=== PATIENT | female | born 1930 | race African-American/Black ===

== ENCOUNTER 2019-02-17 17:30 | Inpatient (IN) | payer MEDICARE, MEDICAID ==
[~2019-02-17 17:30] MED LIST: ISOVUE-370 76%-LOCM 1 ML ONE
[2019-02-17 18:36] LABS: Bilirubin Negative (Negative); Blood, Urine Negative (Negative); Clarity CLOUDY (Clear); Glucose, Urine (Dipstick) Negative (Negative); Leukocyte Trace (Negative); Nitrite Negative (Negative); Protein, Urine (Dipstick) Trace mg/dL (Neg-Trace); pH, Urine 5.5 (5.0-9.0)
[2019-02-17 18:44] LABS: RBC/HPF 0-3 HPF (0-3)
[2019-02-17 18:45] LABS: Bacteria/HPF None Seen HPF (None Seen); Hyaline Casts/LPF NONE SEEN LPF (0-3 Hyaline); Squamous Epithelial 0-3 HPF (0-3); WBC/HPF 0-3 HPF (0-3)
[2019-02-17 18:47] LABS: #Eosinphils 0.3 thou/uL (0.0-0.7); #Lymphocytes 0.9 thou/uL (1.20-3.40); #Monocytes 1.4 thou/uL (0.11-0.59); #Neutrophils 7.8 thou/uL (1.40-6.50); %Basophils 0.4 % (0.0-1.0); %Eosinophils 2.8 % (0.0-10.0); %Lymphocytes 8.8 % (21.0-51.0); %Monocytes 13.3 % (0.0-10.0); %Neutrophils 74.7 % (42.0-75.0); Hemoglobin 15.4 g/dL (12.0-16.0); Mean Corpuscular HGB CONC 32.2 g/dL (32.0-36.0); Mean Corpuscular Hemoglobin 30.7 pg (27.0-31.0); Mean Corpuscular Volume 95.3 fL (78.0-98.0); Mean Platelet Volume 8.1 fL (7.4-10.4); Platelet Count 225 thou/uL (130-400); RBC Distribution Width 13.1 % (11.5-14.5); Red Blood Cell (RBC) Count 5.02 mill/uL (4.20-5.40); White Blood Cell (WBC) Count 10.4 thou/uL (4.8-10.8)
[2019-02-17] MEDS ORDERED: Cefepime 2 GM VIAL ONE (18:51)
[2019-02-17] MEDS ORDERED: Acetaminophen 650 MG Suppository ONE (18:52)
[2019-02-17 19:08] LABS: ALT (SGPT) 34 U/L (8-55); AST (SGOT) 30 U/L (5-34); Albumin 3.7 g/dL (3.4-4.8); Alkaline Phosphatase 93 U/L (40-150); Anion Gap 17 mmol/L (10-20); BUN (Urea Nitrogen) 23 mg/dL (9.8-20.1); Bilirubin, Total 0.3 mg/dL (0.2-1.2); Calc. Creatinine Clearance 0 mL/min (70-130); Calcium 9.6 mg/dL (7.8-10.44); Carbon Dioxide 29 mmol/L (23-31); Chloride 109 mmol/L (98-107); Estimated GFR-MDRD 49; Globulin 4.3 g/dL (2.4-3.5); Glucose 133 mg/dL (83-110); Sodium 151 mmol/L (136-145)
--- NOTE | 2019-02-17 19:46 | RAD ---
PORTABLE CHEST: Date: 02/17/19 HISTORY: Sepsis. COMPARISON: 07/07/18. FINDINGS: No focal infiltrate. Mild cardiomegaly. Prominent aortic calcification. Vascularity is within normal range. IMPRESSION: No acute infiltrate identified. POS: [facility]
--- NOTE | 2019-02-17 21:10 | CT ---
CT ABDOMEN AND PELVIS WITH IV CONTRAST: Date: 02/17/19 Multiple axial tomograms obtained through the abdomen and pelvis with IV enhancement. INDICATION: Fever. UTI. FINDINGS: Images through the lung bases show mild right basilar atelectasis posteriorly. Liver, spleen, and pancreas are unremarkable. Adrenal glands normal. Left renal cystic lesion measures 4.5 cm. No evidence of hydronephrosis or urinary obstruction. Scott catheter is in place and the bladder is contracted. Both kidneys show symmetric enhancement and func tion. Small bowel loops normal caliber. Stool throughout the colon. Appendix appears normal. Aorta is calci fied and ectatic. Uterus unremarkable. No free fluid. IMPRESSION: No acute process identified. POS: [facility]
[2019-02-17 22:38] VITALS: BMI 25.2
[2019-02-18] MEDS ORDERED: Acetaminophen 325 MG TAB PO PRN (02:17)
[2019-02-18] MEDS ORDERED: Ondansetron ODT 4 MG TAB PO PRN (02:17)
[2019-02-18] MEDS ORDERED: Acetaminophen 650 MG Suppository PR PRN (02:17)
[2019-02-18] MEDS ORDERED: Ondansetron PF 4 MG/2 ML Vial IVP PRN (02:17)
[2019-02-18] MEDS: Dextrose 5 %-0.45 % NaCl 1,000 ML IV SCH ×2 (02:50→16:19)
--- NOTE | 2019-02-18 03:19 | HP ---
PRIMARY CARE DOCTOR: Stone Duran MD. CODE STATUS: Full code. TIME OF EVALUATION: 10:30 p.m. CHIEF COMPLAINT: Change in mental status. HISTORY OF PRESENT ILLNESS: This is 88 years old female patient, past medical history of glaucoma, GERD, constipation, hyperlipidemia, Alzheimer's, hypokalemia, frequent falls, came to the hospital after having change in mental status. The patient is nonverbal, so information has been gathered from nursing staff and from records. It was reported that EMS went to the longterm because the patient was lethargic for the past few days. She had been diagnosed with UTI 8 days ago, and had been on Macrobid. Symptoms were severe, likely trigger for underlying infection. No alleviating factors. REVIEW OF SYSTEMS: Unable to obtain. The patient is nonverbal. PAST MEDICAL HISTORY: As mentioned in the HPI. PAST SURGICAL HISTORY: Unable to verify with the patient. The patient is confused and has dementia. PSYCHIATRIC HISTORY: Dementia, psychosis, delusional disorder, and depression. SOCIAL HISTORY: The patient lives in a long-term care facility. FAMILY HISTORY: Unable to verify. KNOWN ALLERGIES: Bactrim DS. REPORTED MEDICATIONS: 1. Macrobid. 2. Bactroban. 3. Milk of magnesia. 4. Maalox. 5. Divalproex. 6. Melatonin. 7. Clotrimazole. 8. K-Dur. 9. Latanoprost. 10. Lasix. 11. Norvasc. 12. Acetaminophen. PHYSICAL EXAMINATION: VITAL SIGNS: On presentation, blood pressure 143/88 with heart rate 103, respiratory rate was 22, temperature 101, pain was 0/10, oxygen saturation was 97% on room air. GENERAL APPEARANCE: The patient is arouse, disoriented, not in acute distress. HEENT: Eyes, normal conjunctivae. Dry oral mucosa. Anicteric. No JVD. RESPIRATORY: Bilateral air entry. No rales. No wheezing. Symmetric expansion. CARDIOVASCULAR: Normal rate, regular rhythm. No murmurs. No gallop. Bilateral leg edema. ABDOMEN: Soft. Normal bowel sounds. MUSCULOSKELETAL: Baseline range of motion and strength. SKIN: Warm, intact. No pallor. No rash. No redness. Peripheral pulses are present. Capillary refill seems to be intact. NEUROLOGIC: Unable to fully explore. The patient is confused. PSYCHIATRIC: Unable to fully explore. The patient is confused. DIAGNOSTIC STUDIES: EKG was reviewed. The patient has sinus tachycardia at the rate of 104, CT 122, QRS 78, QT corrected 431. Chest x-ray was reviewed. The patient has no acute infiltrate identified. The abdomen and pelvis CT was reviewed, the patient has no acute process. LABORATORY DATA: Reviewed. The patient has white count 10.4, hemoglobin 15.4, MCV 95.3, platelet count 225. Chemistry; sodium 151, potassium 4.0, chloride 109, carbon dioxide 29, anion gap 17, BUN 23, creatinine 1.25, previous creatinine was 0.86, GFR 49, glucose 133, lactic acid 3.7, the second one 2.0, calcium 9.6. LFTs were negative. Urine was done, it was negative. ASSESSMENT AND PLAN: The patient will be placed in the hospital with following medical problems: 1. Encephalopathy. It seems that the patient has acute change in mental status when compared with baseline, unclear etiology. It looks like main concern was for sepsis. The patient has been started on antibiotics. Follow cultures. It will need adjustment depending on results impending if we are able to find any source for infection. 2. Hypernatremia, sodium 151. The patient was started on LR. We will change fluids to D5W half NS. This is likely secondary to dehydration. We will monitor BMP to follow sodium. 3. Acute kidney injury. This is an increase from more than 0.3 mg/dL when compared with previous baseline creatinine. This is likely secondary to dehydration. We will hydrate, we will monitor kidney function. We will treat accordingly. 4. Lactic acidosis. Lactic acid was 3.7. Repeat one 2.0. We will treat underlying condition. 5. Hyperglycemia. Glucose 133. This might be secondary to underlying physical distress. No history of diabetes. We will monitor. No need for any acute intervention at this point. 6. Deep venous thrombosis prophylaxis. Job ID: [id number]
[2019-02-18 05:56] LABS: Anion Gap 11 mmol/L (10-20); BUN (Urea Nitrogen) 17 mg/dL (9.8-20.1); Calc. Creatinine Clearance 47 mL/min (70-130); Calcium 8.6 mg/dL (7.8-10.44); Carbon Dioxide 25 mmol/L (23-31); Chloride 114 mmol/L (98-107); Estimated GFR-MDRD 74; Glucose 133 mg/dL (83-110); Potassium 3.6 mmol/L (3.5-5.1); Sodium 146 mmol/L (136-145)
[2019-02-18 06:40] LABS: Hemoglobin 13.3 g/dL (12.0-16.0); Mean Corpuscular HGB CONC 31.5 g/dL (32.0-36.0); Mean Corpuscular Hemoglobin 30.2 pg (27.0-31.0); Mean Corpuscular Volume 95.9 fL (78.0-98.0); Mean Platelet Volume 8.2 fL (7.4-10.4); Platelet Count 162 thou/uL (130-400); RBC Distribution Width 12.8 % (11.5-14.5); Red Blood Cell (RBC) Count 4.41 mill/uL (4.20-5.40)
[2019-02-18 07:03] LABS: Band 3 % (5-11); Eosinophils 4 % (0-10); Lymphocytes 23 % (21-51); MDiff Complete? YES; Monocytes 12 % (0-10); Neutrophil 58 % (42-75)
[2019-02-18] MEDS ORDERED: Prevnar 13-Val Conj/PF 0.5 ML SYRINGE IM ONE (09:00)
[2019-02-18] MEDS: Vancomycin HCl 1 GM in Premix Bag 1 BAG IVPB SCH ×2 (09:32→19:49)
[2019-02-18] MEDS: Cefepime 1 GM in Sodium Chloride 0.9% 100 ML IVPB SCH ×2 (09:32→19:49)
[2019-02-18] MEDS: Enoxaparin Sodium 30 MG/0.3 ML SYRINGE SC SCH (09:33)
[2019-02-18] MEDS ORDERED: Clotrimazole 1 % Cream 30 GM TUBE TOP PRN (14:50)
[2019-02-18] MEDS ORDERED: Milk Of Magnesia 30 ML UDCUP PO PRN (14:50)
[2019-02-18] MEDS ORDERED: guaiFENesin/Dextromethorphan 10 ML UDCUP PO PRN (14:50)
[2019-02-18] MEDS: Divalproex Sodium DR 500 MG TAB PO SCH ×2 (16:19→20:09)
--- NOTE | 2019-02-18 16:59 | PDOC.PN ---
- Subjective Encounter Start Date: 02/18/19 Encounter Start Time: 09:00 Pt seen for followup re: acute metabolic encephalopathy. Answering some questions but not consistently, unable to complete ROS. - Objective Resuscitation Status - Order Detail: 02/18/19 02:17 Resuscitation Status Routine Resuscitation Status: FULL: Full Resuscitation MAR Reviewed: Yes Vital Signs & Weight: Vital Signs (12 hours) Temp Pulse Resp BP Pulse Ox 02/18/19 15:31 98.2 F 71 18 160/70 H 94 L 02/18/19 12:45 98.2 F 55 L 18 159/64 H 95 02/18/19 07:39 98.9 F 53 L 18 93/52 L 94 L 02/18/19 07:35 95 02/18/19 07:20 98.3 F 71 18 147/68 H 95 Weight Weight 147 lb 4 oz Result Diagrams: 02/18/19 05:11 02/18/19 05:11 Additional Labs: Tele: NSR Phys Exam - Physical Examination Constitutional: NAD HEENT: sclera anicteric, oral pharynx no lesions, 2+ tonsils Dry mucosae Neck: no nodes, no JVD, supple, full ROM Respiratory: clear to auscultation bilateral Cardiovascular: RRR, no rub S1, S2 Gastrointestinal: soft, non-tender, no distention, positive bowel sounds Neurological: moves all 4 limbs Psychiatric: normal affect Deviation from normal: Oriented to person only, not to place or time Dx/Plan (1) Acute metabolic encephalopathy Code(s): G93.41 - METABOLIC ENCEPHALOPATHY Status: Acute Comment: Likely secondary to infection (2) UTI (urinary tract infection) Status: Acute Comment: Partially treated UTI. Continue cefepime and vancomycin, follow cultures. (3) Dehydration Code(s): E86.0 - DEHYDRATION Status: Acute Comment: continue IV fluids (4) Hypernatremia Code(s): E87.0 - HYPEROSMOLALITY AND HYPERNATREMIA Status: Acute Comment: sodium improved to 146 today, continue IV fluids and recheck sodium level. - Plan * . Review of Systems - Medications/Allergies Allergies/Adverse Reactions: Allergies Allergy/AdvReac Type Severity Reaction Status Date / Time sulfamethoxazole Allergy Verified 01/29/17 23:00 [From Bactrim] trimethoprim [From Bactrim] Allergy Verified 01/29/17 23:00 Medications: Current Medications Acetaminophen (Tylenol) 650 mg PO Q4H PRN PRN Reason: Headache/Fever/Mild Pain (1-3) Acetaminophen (Tylenol) 650 mg MN Q4H PRN PRN Reason: Headache/Fever/Mild Pain (1-3) Amlodipine Besylate (Norvasc) 5 mg PO DAILY [facility] Clotrimazole (Lotrimin 1% Cream) 0 gm TOP BID PRN PRN Reason: DIRECTED Divalproex Sodium (Depakote) 500 mg PO TID [facility] Last Admin: 02/18/19 16:19 Dose: 500 mg Enoxaparin Sodium (Lovenox) 30 mg SC 0900 [facility] Last Admin: 02/18/19 09:33 Dose: 30 mg Furosemide (Lasix) 20 mg PO DAILY [facility] Guaifenesin/Dextromethorphan (Robitussin Dm) 10 ml PO Q4H PRN PRN Reason: Cough Dextrose/Sodium Chloride (D5 1/2 Ns) 1,000 mls @ 75 mls/hr IV .[id number] [facility] Last Admin: 02/18/19 16:19 Dose: 1,000 mls Vancomycin HCl 1 gm/ Device 200 mls @ 200 mls/hr IVPB Q12H [facility] Last Admin: 02/18/19 09:32 Dose: 200 mls Cefepime HCl 1 gm/ Sodium (Chloride) 100 mls @ 200 mls/hr IVPB Q12HR [facility] Last Admin: 02/18/19 09:32 Dose: 100 mls Latanoprost (Xalatan 0.005% Ophth Soln) 1 drop [facility] Magnesium Hydroxide (Milk Of Magnesium) 30 ml PO Q4H PRN PRN Reason: Indigestion Melatonin (Melatonin) 4.5 mg PO HS [facility] Miscellaneous Medication (Pharmacy To Dose) 1 each IVPB PRN PRN PRN Reason: Pharmacy to dose Ondansetron HCl (Zofran Odt) 4 mg PO Q6H PRN PRN Reason: Nausea/Vomiting Ondansetron HCl (Zofran) 4 mg IVP Q6H PRN PRN Reason: Nausea/Vomiting
[2019-02-18] MEDS ORDERED: hydrALAZINE 20 MG/ML VIAL SLOW IVP PRN (18:15)
[2019-02-18] MEDS: Latanoprost 0.005% Ophth Soln 2.5 ml Bottle EA EYE SCH (20:03)
[2019-02-18] MEDS: Melatonin 3 MG TAB PO SCH (20:04)
[2019-02-19 06:11] LABS: #Basophils 0.1 thou/uL (0.0-0.2); #Eosinphils 0.6 thou/uL (0.0-0.7); #Lymphocytes 1.9 thou/uL (1.20-3.40); #Monocytes 1.1 thou/uL (0.11-0.59); #Neutrophils 5.3 thou/uL (1.40-6.50); %Basophils 0.6 % (0.0-1.0); %Eosinophils 6.9 % (0.0-10.0); %Lymphocytes 20.9 % (21.0-51.0); %Monocytes 12.2 % (0.0-10.0); %Neutrophils 59.4 % (42.0-75.0); Hemoglobin 13.1 g/dL (12.0-16.0); Mean Corpuscular HGB CONC 30.9 g/dL (32.0-36.0); Mean Corpuscular Hemoglobin 29.4 pg (27.0-31.0); Mean Corpuscular Volume 95.1 fL (78.0-98.0); Mean Platelet Volume 8.4 fL (7.4-10.4); Platelet Count 187 thou/uL (130-400); RBC Distribution Width 12.5 % (11.5-14.5); Red Blood Cell (RBC) Count 4.47 mill/uL (4.20-5.40); White Blood Cell (WBC) Count 8.9 thou/uL (4.8-10.8)
[2019-02-19] MEDS: Dextrose 5 %-0.45 % NaCl 1,000 ML IV SCH ×2 (06:21→21:36)
[2019-02-19 06:34] LABS: Anion Gap 9 mmol/L (10-20); BUN (Urea Nitrogen) 9 mg/dL (9.8-20.1); Calc. Creatinine Clearance 56 mL/min (70-130); Calcium 8.4 mg/dL (7.8-10.44); Carbon Dioxide 26 mmol/L (23-31); Chloride 105 mmol/L (98-107); Estimated GFR-MDRD Greater than 90; Glucose 114 mg/dL (83-110); Potassium 3.3 mmol/L (3.5-5.1); Sodium 137 mmol/L (136-145)
[2019-02-19] MEDS: Vancomycin HCl 1 GM in Premix Bag 1 BAG IVPB SCH ×2 (08:14→21:19)
[2019-02-19] MEDS: Cefepime 1 GM in Sodium Chloride 0.9% 100 ML IVPB SCH ×2 (08:21→21:19)
[2019-02-19] MEDS: Amlodipine 5 MG TAB PO SCH (08:22)
[2019-02-19] MEDS: Furosemide 20 MG TAB PO SCH (08:22)
[2019-02-19] MEDS: Enoxaparin Sodium 30 MG/0.3 ML SYRINGE SC SCH (08:22)
[2019-02-19] MEDS: Divalproex Sodium DR 500 MG TAB PO SCH ×3 (08:22→21:22)
--- NOTE | 2019-02-19 18:09 | PDOC.PN ---
- Subjective Encounter Start Date: 02/19/19 Encounter Start Time: 09:20 Pt seen for followup re: acute metabolic encephalopathy. Pt is not answering questions, could not complete ROS. - Objective Resuscitation Status - Order Detail: 02/18/19 02:17 Resuscitation Status Routine Resuscitation Status: FULL: Full Resuscitation MAR Reviewed: Yes Vital Signs & Weight: Vital Signs (12 hours) Temp Pulse Resp BP Pulse Ox 02/19/19 16:16 98.6 F 61 18 126/71 96 02/19/19 12:10 97.8 F 78 18 149/71 H 94 L 02/19/19 08:22 63 02/19/19 07:10 98.6 F 68 18 141/60 H 94 L Weight Weight 147 lb 4 oz I&O: 02/18/19 02/19/19 02/20/19 06:59 06:59 06:59 Intake Total 2355 Output Total 2019 Balance 335 Result Diagrams: 02/19/19 05:24 02/19/19 05:24 EKG Reviewed by me: Yes (Tele: NSR) Phys Exam - Physical Examination Constitutional: NAD HEENT: moist MMs Neck: supple Respiratory: clear to auscultation bilateral Cardiovascular: RRR Gastrointestinal: soft Neurological: moves all 4 limbs Psychiatric: normal affect Deviation from normal: Unable to assess orientation Dx/Plan (1) Acute metabolic encephalopathy Code(s): G93.41 - METABOLIC ENCEPHALOPATHY Status: Acute Comment: Likely secondary to infection, improving (2) UTI (urinary tract infection) Status: Acute Comment: Continue cefepime and vancomycin, follow urine cultures. (3) Hypokalemia Code(s): E87.6 - HYPOKALEMIA Status: Acute Comment: replace potassium (4) Dehydration Code(s): E86.0 - DEHYDRATION Status: Resolved (5) Hypernatremia Code(s): E87.0 - HYPEROSMOLALITY AND HYPERNATREMIA Status: Resolved - Plan * . Review of Systems - Medications/Allergies Allergies/Adverse Reactions: Allergies Allergy/AdvReac Type Severity Reaction Status Date / Time sulfamethoxazole Allergy Verified 01/29/17 23:00 [From Bactrim] trimethoprim [From Bactrim] Allergy Verified 01/29/17 23:00 Medications: Current Medications Acetaminophen (Tylenol) 650 mg PO Q4H PRN PRN Reason: Headache/Fever/Mild Pain (1-3) Acetaminophen (Tylenol) 650 mg IA Q4H PRN PRN Reason: Headache/Fever/Mild Pain (1-3) Amlodipine Besylate (Norvasc) 5 mg PO DAILY [facility] Last Admin: 02/19/19 08:22 Dose: 5 mg Clotrimazole (Lotrimin 1% Cream) 0 gm TOP BID PRN PRN Reason: DIRECTED Divalproex Sodium (Depakote) 500 mg PO TID [facility] Last Admin: 02/19/19 16:15 Dose: 500 mg Enoxaparin Sodium (Lovenox) 30 mg SC 0900 [facility] Last Admin: 02/19/19 08:22 Dose: 30 mg Furosemide (Lasix) 20 mg PO DAILY [facility] Last Admin: 02/19/19 08:22 Dose: 20 mg Guaifenesin/Dextromethorphan (Robitussin Dm) 10 ml PO Q4H PRN PRN Reason: Cough Hydralazine HCl (Apresoline) 10 mg SLOW IVP Q6H PRN PRN Reason: SBP Greater Than 170 Dextrose/Sodium Chloride (D5 1/2 Ns) 1,000 mls @ 75 mls/hr IV .[id number] [facility] Last Admin: 02/19/19 06:21 Dose: 1,000 mls Vancomycin HCl 1 gm/ Device 200 mls @ 200 mls/hr IVPB Q12H [facility] Last Admin: 02/19/19 08:14 Dose: 200 mls Cefepime HCl 1 gm/ Sodium (Chloride) 100 mls @ 200 mls/hr IVPB Q12HR [facility] Last Admin: 02/19/19 08:21 Dose: 100 mls Latanoprost (Xalatan 0.005% Ophth Soln) 1 drop [facility] Last Admin: 02/18/19 20:03 Dose: 1 drop Magnesium Hydroxide (Milk Of Magnesium) 30 ml PO Q4H PRN PRN Reason: Indigestion Melatonin (Melatonin) 4.5 mg PO [facility] Last Admin: 02/18/19 20:04 Dose: 4.5 mg Miscellaneous Medication (Pharmacy To Dose) 1 each IVPB PRN PRN PRN Reason: Pharmacy to dose Ondansetron HCl (Zofran Odt) 4 mg PO Q6H PRN PRN Reason: Nausea/Vomiting Ondansetron HCl (Zofran) 4 mg IVP Q6H PRN PRN Reason: Nausea/Vomiting
[2019-02-19] MEDS ORDERED: Potassium Chloride 20 MEQ TAB PO SCH (18:15)
[2019-02-19] MEDS: Latanoprost 0.005% Ophth Soln 2.5 ml Bottle EA EYE SCH (21:20)
[2019-02-19] MEDS: Melatonin 3 MG TAB PO SCH (21:22)
[2019-02-20] MEDS ORDERED: diphenhydrAMINE 50 MG/ML VIAL IVP SCH (00:45)
[2019-02-20 06:07] LABS: #Basophils 0.1 thou/uL (0.0-0.2); #Eosinphils 0.5 thou/uL (0.0-0.7); #Lymphocytes 1.7 thou/uL (1.20-3.40); #Monocytes 0.8 thou/uL (0.11-0.59); %Basophils 0.8 % (0.0-1.0); %Eosinophils 6.9 % (0.0-10.0); %Lymphocytes 24.3 % (21.0-51.0); %Monocytes 11.5 % (0.0-10.0); %Neutrophils 56.5 % (42.0-75.0); Hemoglobin 13.1 g/dL (12.0-16.0); Mean Corpuscular HGB CONC 32.8 g/dL (32.0-36.0); Mean Corpuscular Hemoglobin 30.6 pg (27.0-31.0); Mean Corpuscular Volume 93.4 fL (78.0-98.0); Mean Platelet Volume 8.2 fL (7.4-10.4); Platelet Count 181 thou/uL (130-400); RBC Distribution Width 12.3 % (11.5-14.5); Red Blood Cell (RBC) Count 4.29 mill/uL (4.20-5.40); White Blood Cell (WBC) Count 7.2 thou/uL (4.8-10.8)
[2019-02-20 06:27] LABS: Anion Gap 10 mmol/L (10-20); BUN (Urea Nitrogen) 7 mg/dL (9.8-20.1); Calc. Creatinine Clearance 56 mL/min (70-130); Calcium 8.3 mg/dL (7.8-10.44); Carbon Dioxide 25 mmol/L (23-31); Chloride 106 mmol/L (98-107); Estimated GFR-MDRD Greater than 90; Glucose 116 mg/dL (83-110); Potassium 3.2 mmol/L (3.5-5.1); Sodium 138 mmol/L (136-145)
[2019-02-20] MEDS: Amlodipine 5 MG TAB PO SCH (08:40)
[2019-02-20] MEDS: Divalproex Sodium DR 500 MG TAB PO SCH (08:40)
[2019-02-20] MEDS: Furosemide 20 MG TAB PO SCH (08:40)
[2019-02-20] MEDS: Enoxaparin Sodium 30 MG/0.3 ML SYRINGE SC SCH (08:41)
[2019-02-20] MEDS: Cefepime 1 GM in Sodium Chloride 0.9% 100 ML IVPB SCH (08:44)
[2019-02-20] MEDS: Vancomycin HCl 1 GM in Premix Bag 1 BAG IVPB SCH (08:44)
--- NOTE | 2019-02-20 10:18 | PQF ---
ADDRESSED THIS ISSUE IN DISCHARGE SUMMARY CLINICAL DOCUMENTATION IMPROVEMENT CLARIFICATION FORM: ICD-10 Updated PLEASE DO AN ADDENDUM TO THE PROGRESS NOTE WITH ANY DOCUMENTATION UPDATES OR ADDITIONS AND CARRY THROUGH TO DC SUMMARY. THANK YOU. DATE: 02/20/2019 ATTN: Dr. Appiah Please exercise your independent, professional judgment in responding to the clarification form. Clinical indicators are provided on the bottom of this form for your review Please check appropriate box(s) to clarify if the following diagnosis has been ruled in or ruled out: SEPSIS [ ] Ruled in diagnosis [ ] Continue to treat [ ] Resolved [ ] Ruled out diagnosis [ ] Cannot rule out diagnosis [ ] Other diagnosis [ ] Unable to determine In addition, please specify: Present on Admission (POA): [ ] Yes [ ] No [ ] Unable to determine For continuity of documentation, please document condition throughout progress notes and discharge summary. Thank You. CLINICAL INDICATORS - SIGNS / SYMPTOMS / LABS ER RECORD 02/17: BP 143/88, Pulse 103, Resp. 22 Temp. 101 DX: Sepsis H&P 02/17: Lactic acid 3.7 Glucose 133 No history of diabetes Encephalopathy. It looks like main concern was for sepsis. BETY PN 02/18: Acute metabolic encephalopathy. Likely secondary to infection Partially treated UTI RISKS: H&P: 88 yo lives in a long-term care facility. Diagnosed with UTI 8 days ago. Hx Alzheimer's. TREATMENT: PN 02/19: Continue cefepime and vancomycin, follow urine cultures. Thank you, Joie (This form is maintained as a part of the permanent medical record) 2015 [employer]. All Rights Reserved Joie Basurto RN, BSN [email or web address] Office: [phone] [facility]
[2019-02-20] MEDS ORDERED: Nitrofurantoin Monohyd/M-Cryst 100 MG CAP PO SCH ×2 (10:45→21:00)
[2019-02-20] MEDS: Potassium Chloride 20 MEQ TAB PO SCH ×2 (11:21→15:37)
[2019-02-20] MEDS: Dextrose 5 %-0.45 % NaCl 1,000 ML IV SCH (11:21)
[2019-02-20 12:12] VITALS: BP 168/89; TEMP 97.3
--- NOTE | 2019-02-21 04:58 | DIS ---
DATE OF ADMISSION: 02/17/2019 DATE OF DISCHARGE: 02/20/2019 PRIMARY CARE PROVIDER: Stone Duran MD DISCHARGE DIAGNOSES: 1. Sepsis. 2. Sepsis, most likely secondary to partially treated urinary tract infection. 3. Acute metabolic encephalopathy. 4. Acute kidney injury. 5. Dehydration. CONDITION OF PATIENT ON THE DAY OF DISCHARGE: Stable. I assessed, Ms. Whitney on the day of discharge. She denies any chest pain or shortness of breath. Vital signs are stable. S1 and S2 are heard, regular. Lungs are clear to auscultation bilaterally. DISCHARGE MEDICATIONS: No change was made to her pre-admission home medications as dictated by Dr. Garza on his history and physical note dated February 18, 2019. HOSPITAL COURSE: Ms. Whitney is a pleasant 88-year-old lady who was admitted to [facility] for acute metabolic encephalopathy and sepsis on February 17, 2019. Please refer to Dr. Garza's history and physical note dated February 18, 2019, for further details. She was treated with broad-spectrum intravenous antibiotics. Suspected source of infection was partially treated urinary tract infection. Final urine cultures did not show any growth. Preliminary blood cultures did not show any growth at 48 hours. Based on her previous urine culture result, she is being discharged back to her [facility] on Macrobid 100 mg 2 times a day. She has been advised to follow up with her primary care provider for final blood culture results. She did not have any leukocytosis during this hospitalization. On the day of discharge, she has white count 7200, hemoglobin 13.1, platelet count 181,000. Sodium 138, potassium 3.2 which is being replaced, and creatinine 0.71. The patient was also dehydrated and had acute kidney injury at the time of admission. These resolved by the day of discharge. Many thanks for allowing me to participate in your patient's care. Please feel free to contact me with any questions or concerns. DISCHARGE DESTINATION: [facility], from where the patient was admitted to the hospital. Total amount of time spent coordinating this discharge: 32 minutes. Job ID: [id number]
== END 2019-02-20 14:50 | disposition swing bed (61) | DRG 871 ==
LOC: ERS 17:30 → 2NO 21:22
PROVIDERS: ADMIT Hospitalist; ATTEND Hospitalist
DX: A41.9 Sepsis, unspecified organism (principal); G93.41 Metabolic encephalopathy; N39.0 Urinary tract infection, site not specified; E87.0 Hyperosmolality and hypernatremia; N17.9 Acute kidney failure, unspecified; K21.9 Gastro-esophageal reflux disease without esophagitis; H40.9 Unspecified glaucoma; K59.00 Constipation, unspecified; E78.5 Hyperlipidemia, unspecified; G30.9 Alzheimer's disease, unspecified; F02.80 Dementia in other diseases classified elsewhere, unspecified severity, without behavioral disturbance, psychotic disturbance, mood disturbance, and anxiety; R29.6 Repeated falls; F32.9 Major depressive disorder, single episode, unspecified; E86.0 Dehydration; R73.9 Hyperglycemia, unspecified; E87.6 Hypokalemia; Z88.1 Allergy status to other antibiotic agents
CPT/HCPCS: 36415; 51702; 71045; 74177; 80048; 80053; 81003; 81015; 83605; 85025; 87040; 87086; 87804; 90471; 90670; 93005; 96361; 96365; 96367; G0009; J0692; J1200; J1650; J3370; J3490; Q9966

== ENCOUNTER 2019-02-23 00:48 | Inpatient (IN) | payer MEDICARE, MEDICAID ==
[2019-02-23] MEDS ORDERED: cefTRIAXone\\ROCEPHIN 2 GM VIAL ONE (01:09)
[2019-02-23 01:52] LABS: #Eosinphils 0.1 thou/uL (0.0-0.7); #Lymphocytes 1.2 thou/uL (1.20-3.40); #Monocytes 1.7 thou/uL (0.11-0.59); #Neutrophils 10.5 thou/uL (1.40-6.50); %Basophils 0.2 % (0.0-1.0); %Eosinophils 0.8 % (0.0-10.0); %Lymphocytes 8.9 % (21.0-51.0); %Monocytes 12.4 % (0.0-10.0); %Neutrophils 77.6 % (42.0-75.0); Hemoglobin 14.5 g/dL (12.0-16.0); Mean Corpuscular HGB CONC 32.8 g/dL (32.0-36.0); Mean Corpuscular Volume 94.4 fL (78.0-98.0); Mean Platelet Volume 8.4 fL (7.4-10.4); Platelet Count 267 thou/uL (130-400); RBC Distribution Width 13.1 % (11.5-14.5); Red Blood Cell (RBC) Count 4.68 mill/uL (4.20-5.40); White Blood Cell (WBC) Count 13.5 thou/uL (4.8-10.8)
[2019-02-23 02:11] LABS: Bilirubin Small (Negative); Blood, Urine Moderate (Negative); Clarity TURBID (Clear); Glucose, Urine (Dipstick) Negative (Negative); Leukocyte Trace (Negative); Nitrite Negative (Negative); Protein, Urine (Dipstick) 30 mg/dL (Neg-Trace); Urobilinogen 0.2 mg/dL (0.2-1.0)
[2019-02-23 02:14] LABS: Bacteria/HPF None Seen HPF (None Seen); RBC/HPF 0-3 HPF (0-3)
[2019-02-23 02:14] LABS: ALT (SGPT) 68 U/L (8-55); AST (SGOT) 65 U/L (5-34); Albumin 2.8 g/dL (3.4-4.8); Alkaline Phosphatase 76 U/L (40-150); Anion Gap 17 mmol/L (10-20); BUN (Urea Nitrogen) 55 mg/dL (9.8-20.1); Bilirubin, Total 0.4 mg/dL (0.2-1.2); Calc. Creatinine Clearance 0 mL/min (70-130); Calcium 8.9 mg/dL (7.8-10.44); Carbon Dioxide 22 mmol/L (23-31); Chloride 110 mmol/L (98-107); Estimated GFR-MDRD 16; Globulin 4.1 g/dL (2.4-3.5); Glucose 125 mg/dL (83-110); Potassium 5.9 mmol/L (3.5-5.1); Protein, Total 6.9 g/dL (6.0-8.3); Sodium 143 mmol/L (136-145)
[2019-02-23 02:17] LABS: Hyaline Casts/LPF 0-3 HYALINE CAST LPF (0-3 Hyaline); Other Casts/LPF None Seen LPF (0-3 Hyaline); Oval Fat Bodies/HPF None Seen HPF (None Seen); Pathc Cast-AUWi Flag 9.38 (0-2.49); Sperm/HPF None Seen HPF (None Seen); Transitional Epithelial NONE SEEN HPF (0-3); Trichomonas/HPF None Seen HPF (None Seen); Yeast-All Forms None Seen HPF (None Seen)
[2019-02-23] MEDS ORDERED: Acetaminophen 325 MG TAB PO PRN (04:43)
[2019-02-23] MEDS ORDERED: hydrALAZINE 20 MG/ML VIAL SLOW IVP PRN (04:43)
[2019-02-23 05:14] LABS: Potassium 5.8 mmol/L (3.5-5.1)
--- NOTE | 2019-02-23 05:26 | HP ---
PRIMARY CARE PHYSICIAN: Stone Duran MD. CHIEF COMPLAINT: Altered mental status. HISTORY OF PRESENT ILLNESS: Ms. Whitney is a pleasant 88-year-old female who has a history of dementia as well as gastroesophageal reflux disease and hypertension. She was actually recently discharged from our hospital about 4 days ago. At that time, she was treated for urinary tract infection and acute renal failure. She was treated and then released back to the retirement. Apparently while in the retirement, she was found to be very lethargic and nonverbal. Usually she is somewhat ambulatory and able to talk, albeit she has baseline confusion. For this reason, they brought her to the emergency room where she was found to have acute renal failure once again with a creatinine this time up to 3.32. She was also hyperkalemic and has urine which is suggestive of a possible early urinary tract infection with positive leukocyte esterase. The patient is currently sleeping and she does not wake up for me other than opening her eyes. She appears comfortable, but I am unable to get any additional history. REVIEW OF SYSTEMS: This is unobtainable due to the patient's dementia as well as her decreased mentation. PAST MEDICAL HISTORY: Significant for hypertension, recurrent urinary tract infections, glaucoma, gastroesophageal reflux disease, constipation, hyperlipidemia, Alzheimer's dementia, and hypokalemia. PAST SURGICAL HISTORY: Unknown. ALLERGIES: TO BACTRIM. SOCIAL HISTORY: She resides at [facility]. She is a full code. I am unable to get history with regard to smoking or alcohol use. FAMILY HISTORY: Also unknown. MEDICATIONS: Medications are taken from the retirement records. These include; 1. Lasix 20 mg daily. 2. Latanoprost 0.005%. 3. Melatonin 5 mg daily. 4. Norvasc 5 mg p.o. daily. 5. Potassium chloride 10 mEq daily. 6. Macrobid 100 mg twice a day. 7. is on hold. 8. Maalox p.r.n. 9. Tylenol p.r.n. 10. Clotrimazole cream. 11. Robitussin as needed. PHYSICAL EXAMINATION: GENERAL: She is drowsy and nonverbal. She is well developed, well nourished, and well kept in appearance. VITAL SIGNS: Her blood pressure initially was 81/42 and then repeat was 135/57, heart rate 94, respiratory rate of 20, and temperature was 99.5 rectally. HEENT: Her pupils are equal and reactive. She has arcus senilis. Throat, there is no erythema, no exudates. NECK: No adenopathy. No bruits. LUNGS: Clear to auscultation. There is no wheezing, no rales, no rhonchi. CARDIOVASCULAR: She had a normal S1 and S2. There was no S3 or S4. No murmurs, clicks, or rubs. ABDOMEN: Obese. It is soft. It is nontender. Nondistended. Positive for bowel sounds. No rebound. No guarding. No organomegaly. SKIN AND INTEGUMENT: There are no significant skin changes. No rash. LABORATORY RESULTS: The urinalysis shows moderate blood, trace leukocyte esterase. Sodium was 143, potassium 5.9, chloride is 110, CO2 is 22, BUN of 55, creatinine 3.32, glucose is 125. Lactic acid was 2.8. White blood cell count is 13.5, hemoglobin is 14.5, hematocrit is 44.1, and platelet count is 267. Lactic acid was 2.8. IMAGING STUDIES: She had a chest x-ray, which was essentially negative for any obvious cardiopulmonary disease. This is by my reading. ASSESSMENT: This is a pleasant 88-year-old female who was just recently discharged from our hospital, who presents with lethargy and altered mental status, likely as a result of acute renal failure. She had some white cells in the urine, but it does not appear to be in overt urinary tract infection. 1. For acute renal failure, I suspect this is likely from volume depletion and poor oral intake. She will be started on IV hydration and we will trend her renal function. If this does not improve, then we will need to get renal ultrasound and possibly Nephrology consult. 2. Pyuria. This appears to be quite mild. Urine culture has been done. We will treat her empirically with Rocephin and this is based on prior cultures on February 07 in which she had Escherichia coli which was sensitive to ceftriaxone. However, I doubt overt infection in her case. 3. Hypertension. Her blood pressure seems to have recovered. Likely, we can restart amlodipine in the a.m. plus p.r.n. medications. 4. Alzheimer disease. This appears to be fairly advanced and this could be leading to her recurrent acute renal failure and dehydration. She likely has inadequate oral intake and this may be a natural progression of her disease. 5. She will be placed on deep venous thrombosis and gastrointestinal prophylaxis. Job ID: [id number]
[2019-02-23] MEDS: Sodium Chloride 0.9% 1,000 ML IV SCH ×2 (06:06→16:49)
[2019-02-23 06:36] LABS: Lactic Acid 3.1 mmol/L (0.5-2.2)
--- NOTE | 2019-02-23 08:06 | RAD ---
CHEST 1 VIEW: INDICATION: History of sepsis and UTI. COMPARISON: Prior exam dated 02/17/2019. FINDINGS: Chronic lung changes and mild cardiomegaly are stable. No confluent airspace opacity, pleural effusi on, or pneumothorax is evident. The patient's head overlies the right lung apex. The patient is rot ated. IMPRESSION: No acute abnormality. POS: [facility]
[2019-02-23] MEDS: Heparin 5,000 UNITS/ML VIAL SC SCH ×2 (08:54→21:20)
--- NOTE | 2019-02-23 14:08 | PDOC.PN ---
- Subjective Encounter Start Date: 02/23/19 Encounter Start Time: 09:45 Subjective: very lethargic, is unable to clear resp secretions -: awakens to sternal rub but falls asleep immediatly -: is not communicative at present - Objective Resuscitation Status - Order Detail: 02/23/19 03:19 Resuscitation Status Routine Resuscitation Status: DNAR: NO Resuscitation Discussed with: d/w son Mr.Johnson Santo and ANAHY MURPHY Reviewed: Yes Vital Signs & Weight: Vital Signs (12 hours) Temp Pulse Resp BP Pulse Ox 02/23/19 11:39 97.9 F 50 L 16 102/53 L 98 02/23/19 08:54 95 02/23/19 07:37 97.9 F 63 14 130/87 96 02/23/19 05:10 97.6 F 63 18 130/72 95 02/23/19 04:50 95 Weight Admit Weight 142 lb 3.17 oz Weight 142 lb 3.17 oz Result Diagrams: 02/23/19 01:36 02/23/19 01:37 Phys Exam - Physical Examination HEENT: PERRLA, sclera anicteric Neck: no JVD, supple Respiratory: no wheezing rhonchi++ Cardiovascular: RRR, no significant murmur Gastrointestinal: soft, non-tender, positive bowel sounds Musculoskeletal: no edema, pulses present Neurological: non-focal, moves all 4 limbs Dx/Plan (1) UTI (urinary tract infection) Status: Acute Qualifiers: Urinary tract infection type: acute cystitis Hematuria presence: without hematuria Qualified Code(s): N30.00 - Acute cystitis without hematuria (2) BETY (acute kidney injury) Code(s): N17.9 - ACUTE KIDNEY FAILURE, UNSPECIFIED Status: Acute (3) Metabolic acidosis Code(s): E87.2 - ACIDOSIS Status: Acute (4) Hyperkalemia Code(s): E87.5 - HYPERKALEMIA Status: Acute (5) Elevated LFTs Code(s): R94.5 - ABNORMAL RESULTS OF LIVER FUNCTION STUDIES Status: Acute (6) Acute metabolic encephalopathy Code(s): G93.41 - METABOLIC ENCEPHALOPATHY Status: Acute (7) Protein-calorie malnutrition, moderate Code(s): E44.0 - MODERATE PROTEIN-CALORIE MALNUTRITION Status: Chronic (8) Dementia Code(s): F03.90 - UNSPECIFIED DEMENTIA WITHOUT BEHAVIORAL DISTURBANCE Status: Chronic Qualifiers: Dementia type: unspecified type Dementia behavioral disturbance: with behavioral disturbance Qualified Code(s): F03.91 - Unspecified dementia with behavioral disturbance - Plan prognosis guarded, d/w son Mr.Johnson Santo, wants her to be DNAR -: is on ceftriaxone, iv hydration, watch for overload -: freq resp toileting, asp precautions, nebs prn -: echo, d/w for neph consultation -: await culture results * . Review of Systems - Medications/Allergies Allergies/Adverse Reactions: Allergies Allergy/AdvReac Type Severity Reaction Status Date / Time sulfamethoxazole Allergy Verified 02/23/19 07:55 [From Bactrim] trimethoprim [From Bactrim] Allergy Verified 02/23/19 07:55 Medications: Current Medications Acetaminophen (Tylenol) 650 mg PO Q4H PRN PRN Reason: Headache/Fever/Mild Pain (1-3) Heparin Sodium (Porcine) (Heparin) 5,000 units SC BID ERIC Last Admin: 02/23/19 08:54 Dose: 5,000 units Hydralazine HCl (Apresoline) 10 mg SLOW IVP Q4H PRN PRN Reason: SBP > 180 and HR < 70 Ceftriaxone Sodium 1 gm/ (Sodium Chloride) 100 mls @ 200 mls/hr IVPB Q24HR ERIC Sodium Chloride (Normal Saline 0.9%) 1,000 mls @ 100 mls/hr IV .Q10H ERIC Last Admin: 02/23/19 06:06 Dose: 1,000 mls Non-Formulary Medication (Latanoprost/Pf [Latanoprost 0.005% Eye Drop]) 1 drop EA EYE HS ERIC Non-Formulary Medication (Melatonin [Melatonin]) 5 mg PO HS ERIC
[2019-02-23] MEDS: Albuterol Sulfate 1.25 MG/3 ML NEB NEB SCH ×2 (15:34→23:22)
[2019-02-23 15:56] LABS: Anion Gap 14 mmol/L (10-20); BUN (Urea Nitrogen) 52 mg/dL (9.8-20.1); Calc. Creatinine Clearance 21 mL/min (70-130); Calcium 8.6 mg/dL (7.8-10.44); Carbon Dioxide 23 mmol/L (23-31); Chloride 117 mmol/L (98-107); Estimated GFR-MDRD 30; Glucose 102 mg/dL (83-110); Potassium 3.8 mmol/L (3.5-5.1); Sodium 150 mmol/L (136-145)
[2019-02-23] MEDS ORDERED: Non-Formulary Item 1 EACH (Melatonin [Melatonin] 5 MG) PO SCH (21:00)
[2019-02-23] MEDS ORDERED: Non-Formulary Item 1 EACH (Latanoprost/Pf [Latanoprost 0.005% Eye Drop] 1 DROP) EA EYE SCH (21:00)
[2019-02-23] MEDS: Melatonin 3 MG TAB PO SCH (21:17)
[2019-02-23] MEDS: Latanoprost 0.005% Ophth Soln 2.5 ml Bottle EA EYE SCH (21:20)
--- NOTE | 2019-02-23 21:31 | CON ---
DATE OF CONSULTATION: REASON FOR CONSULTATION: Hyperkalemia. HISTORY OF PRESENT ILLNESS: A very pleasant 88-year-old female with a baseline creatinine of less than 1, who presented to the hospital with altered mental status. The patient had vomiting and some diarrhea and was noted to have a creatinine of 3 and a potassium of 5.9, so I was consulted. The patient denies no headache, numbness, tingling, or weakness. The patient can give no further history. PAST MEDICAL HISTORY: Significant for hypertension, CKD, anemia, longterm patient, dementia, constipation. PAST SURGICAL HISTORY: Unknown. HOME MEDICATION: List reviewed. HOSPITAL MEDICATION: List reviewed. REVIEW OF SYSTEMS: Unobtainable. PHYSICAL EXAMINATION: GENERAL: On examination, the patient is resting, VITAL SIGNS: Afebrile, pulse 75, breathing 16, blood pressure 102/50. See above. Awake, alert, in no acute distress. GENERAL APPEARANCE AND MENTAL STATUS: Fair. HEAD/NECK: Normocephalic. Atraumatic. EYES: EOMI. No deformity. EARS: Clear. No ulcers. NOSE: Intact. No lesions. MOUTH: Clear. No discharge. THROAT: Clear. No exudate. LUNGS: Clear. No crackles. CARDIAC: S1, S2. No rub. ABDOMEN: Benign. Bowel sounds positive. GENITALIA/RECTUM: Scott absent. BACK/EXTREMITIES: Edema 0+. NEUROLOGICAL: The patient is resting. SKIN: LYMPHATICS: ASSESSMENT AND RECOMMENDATIONS: 1. Acute kidney injury with chronic kidney disease, most likely due to decreased effective arterial blood volume. Continue hydration. 2. Hyperkalemia. Discussed risks versus benefits of dialysis. Family declined. 3. Anemia, stable. Medication based on GFR appropriate. Overall prognosis is poor. I would recommend palliative consult. Continue hydration with normal saline as a comfort measure. Job ID: [id number]
[2019-02-24] MEDS: cefTRIAXone\\ROCEPHIN 1 GM in Sodium Chloride 0.9% 100 ML IVPB SCH (01:40)
[2019-02-24] MEDS: Sodium Chloride 0.9% 1,000 ML IV SCH (01:41)
[2019-02-24] MEDS: Albuterol Sulfate 1.25 MG/3 ML NEB NEB SCH ×3 (07:17→22:20)
[2019-02-24 08:39] LABS: #Basophils 0.1 thou/uL (0.0-0.2); #Eosinphils 0.6 thou/uL (0.0-0.7); #Lymphocytes 1.8 thou/uL (1.20-3.40); %Basophils 0.8 % (0.0-1.0); %Eosinophils 6.7 % (0.0-10.0); %Lymphocytes 21.5 % (21.0-51.0); %Monocytes 12.1 % (0.0-10.0); %Neutrophils 58.9 % (42.0-75.0); Hemoglobin 13.9 g/dL (12.0-16.0); Mean Corpuscular HGB CONC 32.9 g/dL (32.0-36.0); Mean Corpuscular Volume 94.1 fL (78.0-98.0); Mean Platelet Volume 8.7 fL (7.4-10.4); Platelet Count 243 thou/uL (130-400); Red Blood Cell (RBC) Count 4.48 mill/uL (4.20-5.40); White Blood Cell (WBC) Count 8.4 thou/uL (4.8-10.8)
[2019-02-24 09:02] LABS: Anion Gap 14 mmol/L (10-20); BUN (Urea Nitrogen) 44 mg/dL (9.8-20.1); Calc. Creatinine Clearance 31 mL/min (70-130); Calcium 8.9 mg/dL (7.8-10.44); Carbon Dioxide 23 mmol/L (23-31); Chloride 120 mmol/L (98-107); Estimated GFR-MDRD 47; Glucose 79 mg/dL (83-110); Potassium 3.8 mmol/L (3.5-5.1); Sodium 153 mmol/L (136-145)
[2019-02-24] MEDS: Dextrose 5% in Water 1,000 ML IV SCH (10:09)
[2019-02-24] MEDS: Heparin 5,000 UNITS/ML VIAL SC SCH ×2 (10:09→20:47)
--- NOTE | 2019-02-24 11:52 | PDOC.PN ---
- Subjective Encounter Start Date: 02/24/19 Encounter Start Time: 10:45 Subjective: more awake and smiling with few words this am -: son at bedside -: not oriented, not in distress or sob - Objective Resuscitation Status - Order Detail: 02/23/19 03:19 Resuscitation Status Routine Resuscitation Status: DNAR: NO Resuscitation Discussed with: d/w son Mr.Johnson Santo and ANAHY MURPHY Reviewed: Yes Vital Signs & Weight: Vital Signs (12 hours) Temp Pulse Resp BP Pulse Ox 02/24/19 07:45 98.2 F 61 18 136/56 L 96 02/24/19 07:17 85 16 98 02/24/19 03:26 98.6 F 61 18 115/56 L 98 02/24/19 00:00 98.2 F 62 18 97 Weight Admit Weight 142 lb 3.17 oz Weight 142 lb 3.17 oz I&O: 02/23/19 02/24/19 02/25/19 06:59 06:59 06:59 Intake Total 2300 Output Total 1150 Balance 1150 Result Diagrams: 02/24/19 07:58 02/24/19 07:58 Phys Exam - Physical Examination HEENT: PERRLA, sclera anicteric Neck: no JVD, supple Respiratory: no wheezing, no rales Cardiovascular: RRR, no significant murmur Gastrointestinal: soft, no distention, positive bowel sounds Musculoskeletal: no edema, pulses present Neurological: non-focal, moves all 4 limbs Dx/Plan (1) UTI (urinary tract infection) Status: Acute Qualifiers: Urinary tract infection type: acute cystitis Hematuria presence: without hematuria Qualified Code(s): N30.00 - Acute cystitis without hematuria (2) BETY (acute kidney injury) Code(s): N17.9 - ACUTE KIDNEY FAILURE, UNSPECIFIED Status: Acute (3) Metabolic acidosis Code(s): E87.2 - ACIDOSIS Status: Acute (4) Hyperkalemia Code(s): E87.5 - HYPERKALEMIA Status: Resolved (5) Elevated LFTs Code(s): R94.5 - ABNORMAL RESULTS OF LIVER FUNCTION STUDIES Status: Acute (6) Acute metabolic encephalopathy Code(s): G93.41 - METABOLIC ENCEPHALOPATHY Status: Acute (7) Protein-calorie malnutrition, moderate Code(s): E44.0 - MODERATE PROTEIN-CALORIE MALNUTRITION Status: Chronic (8) Dementia Code(s): F03.90 - UNSPECIFIED DEMENTIA WITHOUT BEHAVIORAL DISTURBANCE Status: Chronic Qualifiers: Dementia type: unspecified type Dementia behavioral disturbance: with behavioral disturbance Qualified Code(s): F03.91 - Unspecified dementia with behavioral disturbance - Plan is on d5w now -: encourage po intake, reg diet with mech soft food -: bld and urine cs are -ve so far -: is on ceftriaxone, will dc in am if stable -: may tx to med floor, gave full updates to son at bedside * . Review of Systems - Medications/Allergies Allergies/Adverse Reactions: Allergies Allergy/AdvReac Type Severity Reaction Status Date / Time sulfamethoxazole Allergy Verified 02/23/19 07:55 [From Bactrim] trimethoprim [From Bactrim] Allergy Verified 02/23/19 07:55 Medications: Current Medications Acetaminophen (Tylenol) 650 mg PO Q4H PRN PRN Reason: Headache/Fever/Mild Pain (1-3) Albuterol Sulfate (Albuterol Sulfate) 1.25 mg NEB [id number] ERIC Last Admin: 02/24/19 07:17 Dose: 1.25 mg Heparin Sodium (Porcine) (Heparin) 5,000 units SC BID ERIC Last Admin: 02/24/19 10:09 Dose: 5,000 units Hydralazine HCl (Apresoline) 10 mg SLOW IVP Q4H PRN PRN Reason: SBP > 180 and HR < 70 Ceftriaxone Sodium 1 gm/ (Sodium Chloride) 100 mls @ 200 mls/hr IVPB Q24HR ERIC Last Admin: 02/24/19 01:40 Dose: 100 mls Dextrose/Water (D5w) 1,000 mls @ 75 mls/hr IV .[id number] ERIC Last Admin: 02/24/19 10:09 Dose: 1,000 mls Latanoprost (Xalatan 0.005% Ophth Soln) 1 drop EA EYE HS ERIC Last Admin: 02/23/19 21:20 Dose: 1 drop Melatonin (Melatonin) 6 mg PO HS ERIC Last Admin: 02/23/19 21:17 Dose: Not Given Sodium Chloride (Flush - Normal Saline) 10 ml IVF Q12HR ERIC Last Admin: 02/24/19 10:11 Dose: Not Given Sodium Chloride (Flush - Normal Saline) 10 ml IVF PRN PRN PRN Reason: Saline Flush
--- NOTE | 2019-02-24 12:42 | PRG ---
DATE OF SERVICE: 02/24/2019 SUBJECTIVE: An 88-year-old female being seen for acute kidney injury. The patient denies any nausea, vomiting, or chest pain. OBJECTIVE: CONSTITUTIONAL: The patient is awake, alert, in no acute distress. VITAL SIGNS: Pulse 64, breathing 16, blood pressure 133/61. GENERAL APPEARANCE AND MENTAL STATUS: Fair. HEAD/NECK: Normocephalic. Atraumatic. EYES: EOMI. No deformity. EARS: Clear. No ulcers. NOSE: Intact. No lesions. MOUTH: Clear. No discharge. THROAT: Clear. No exudate. LUNGS: Clear. No crackles. CARDIAC: S1, S2. No rub. ABDOMEN: Benign. Bowel sounds positive. GENITALIA/RECTUM: Scott absent. BACK/EXTREMITIES: Edema 0+. NEUROLOGICAL: Alert and motor intact. SKIN: LYMPHATICS: LABORATORY DATA: Show sodium 150, potassium 3.8, creatinine 1.2. IMPRESSION AND PLAN: 1. Acute kidney injury, improved. 2. Hypertension, stable. 3. Hypernatremia. Agree with D5W. 4. I will sign off on this patient. Please follow renal function closely. The patient has severe dementia. I would recommend hospice consultation. Job ID: [id number]
[2019-02-24 19:14] LABS: Anion Gap 13 mmol/L (10-20); BUN (Urea Nitrogen) 37 mg/dL (9.8-20.1); Calc. Creatinine Clearance 34 mL/min (70-130); Calcium 8.4 mg/dL (7.8-10.44); Carbon Dioxide 22 mmol/L (23-31); Chloride 119 mmol/L (98-107); Estimated GFR-MDRD 52; Glucose 204 mg/dL (83-110); Sodium 150 mmol/L (136-145)
[2019-02-24] MEDS: Melatonin 3 MG TAB PO SCH (20:44)
[2019-02-24] MEDS: Latanoprost 0.005% Ophth Soln 2.5 ml Bottle EA EYE SCH (20:48)
[2019-02-25] MEDS: cefTRIAXone\\ROCEPHIN 1 GM in Sodium Chloride 0.9% 100 ML IVPB SCH (01:47)
[2019-02-25] MEDS: Dextrose 5% in Water 1,000 ML IV SCH ×5 (01:54→18:24)
[2019-02-25] MEDS: Albuterol Sulfate 1.25 MG/3 ML NEB NEB SCH ×3 (07:55→21:56)
[2019-02-25] MEDS: Heparin 5,000 UNITS/ML VIAL SC SCH ×2 (08:23→19:54)
[2019-02-25 12:48] LABS: Anion Gap 13 mmol/L (10-20); BUN (Urea Nitrogen) 25 mg/dL (9.8-20.1); Calc. Creatinine Clearance 48 mL/min (70-130); Calcium 8.7 mg/dL (7.8-10.44); Carbon Dioxide 23 mmol/L (23-31); Chloride 117 mmol/L (98-107); Estimated GFR-MDRD 73; Glucose 111 mg/dL (83-110); Potassium 3.7 mmol/L (3.5-5.1); Sodium 149 mmol/L (136-145)
--- NOTE | 2019-02-25 13:21 | PDOC.PN ---
- Subjective Encounter Start Date: 02/25/19 Encounter Start Time: 08:45 Subjective: awake, says few words, not oriented -: not in distress - Objective Resuscitation Status - Order Detail: 02/23/19 03:19 Resuscitation Status Routine Resuscitation Status: DNAR: NO Resuscitation Discussed with: d/w son Mr.Johnson Santo and ANAHY MURPHY Reviewed: Yes Vital Signs & Weight: Vital Signs (12 hours) Temp Pulse Resp BP Pulse Ox 02/25/19 10:10 98.1 F 51 L 16 138/74 92 L 02/25/19 08:00 94 L 02/25/19 07:55 48 L 16 95 02/25/19 07:23 98.2 F 51 L 14 148/68 H 94 L 02/25/19 03:26 97.9 F 80 15 139/63 94 L Weight Admit Weight 142 lb 3.17 oz Weight 151 lb 12.8 oz I&O: 02/24/19 02/25/19 02/26/19 06:59 06:59 06:59 Intake Total 2300 2050 Output Total 1150 450 Balance 1150 1600 Result Diagrams: 02/24/19 07:58 02/25/19 11:59 Phys Exam - Physical Examination HEENT: PERRLA, moist MMs Neck: no JVD, supple Respiratory: no wheezing, no rales Cardiovascular: RRR, no significant murmur Gastrointestinal: soft, non-tender, positive bowel sounds Musculoskeletal: no edema, pulses present Neurological: non-focal, moves all 4 limbs Dx/Plan (1) UTI (urinary tract infection) Status: Acute Qualifiers: Urinary tract infection type: acute cystitis Hematuria presence: without hematuria Qualified Code(s): N30.00 - Acute cystitis without hematuria (2) BETY (acute kidney injury) Code(s): N17.9 - ACUTE KIDNEY FAILURE, UNSPECIFIED Status: Acute (3) Metabolic acidosis Code(s): E87.2 - ACIDOSIS Status: Resolved (4) Hyperkalemia Code(s): E87.5 - HYPERKALEMIA Status: Resolved (5) Elevated LFTs Code(s): R94.5 - ABNORMAL RESULTS OF LIVER FUNCTION STUDIES Status: Acute (6) Acute metabolic encephalopathy Code(s): G93.41 - METABOLIC ENCEPHALOPATHY Status: Acute (7) Protein-calorie malnutrition, moderate Code(s): E44.0 - MODERATE PROTEIN-CALORIE MALNUTRITION Status: Chronic (8) Dementia Code(s): F03.90 - UNSPECIFIED DEMENTIA WITHOUT BEHAVIORAL DISTURBANCE Status: Chronic Qualifiers: Dementia type: unspecified type Dementia behavioral disturbance: with behavioral disturbance Qualified Code(s): F03.91 - Unspecified dementia with behavioral disturbance (9) Hypernatremia Code(s): E87.0 - HYPEROSMOLALITY AND HYPERNATREMIA Status: Acute (10) Dehydration Code(s): E86.0 - DEHYDRATION Status: Acute - Plan continue iv hydration -: renal function is back at baseline -: encourage po intake -: bld and urine cs are -ve -: switch to levaquin oral, add norvasc, eye drops * . dc plan when electrolytes are steady. Review of Systems - Medications/Allergies Allergies/Adverse Reactions: Allergies Allergy/AdvReac Type Severity Reaction Status Date / Time sulfamethoxazole Allergy Verified 02/23/19 07:55 [From Bactrim] trimethoprim [From Bactrim] Allergy Verified 02/23/19 07:55 Medications: Current Medications Acetaminophen (Tylenol) 650 mg PO Q4H PRN PRN Reason: Headache/Fever/Mild Pain (1-3) Albuterol Sulfate (Albuterol Sulfate) 1.25 mg NEB [id number] ERIC Last Admin: 02/25/19 07:55 Dose: 1.25 mg Heparin Sodium (Porcine) (Heparin) 5,000 units SC BID ERIC Last Admin: 02/25/19 08:23 Dose: 5,000 units Hydralazine HCl (Apresoline) 10 mg SLOW IVP Q4H PRN PRN Reason: SBP > 180 and HR < 70 Ceftriaxone Sodium 1 gm/ (Sodium Chloride) 100 mls @ 200 mls/hr IVPB Q24HR ERIC Last Admin: 02/25/19 01:47 Dose: 100 mls Dextrose/Water (D5w) 1,000 mls @ 75 mls/hr IV .[id number] ERIC Last Admin: 02/25/19 10:58 Dose: Not Given Latanoprost (Xalatan 0.005% Ophth Soln) 1 drop EA EYE HS ERIC Last Admin: 02/24/19 20:48 Dose: 1 drop Melatonin (Melatonin) 6 mg PO HS ERIC Last Admin: 02/24/19 20:44 Dose: 6 mg Sodium Chloride (Flush - Normal Saline) 10 ml IVF Q12HR ERIC Last Admin: 02/25/19 08:23 Dose: Not Given Sodium Chloride (Flush - Normal Saline) 10 ml IVF PRN PRN PRN Reason: Saline Flush
--- NOTE | 2019-02-25 14:46 | PRG ---
DATE OF SERVICE: 02/25/2019 SUBJECTIVE: An 88-year-old female, being seen for acute kidney injury. The patient denied nausea, vomiting, or chest pain. OBJECTIVE: CONSTITUTIONAL: The patient is awake and alert. VITAL SIGNS: Pulse 75, breathing 16, blood pressure 138/74. GENERAL APPEARANCE AND MENTAL STATUS: Fair. HEAD/NECK: Normocephalic. Atraumatic. EYES: EOMI. No deformity. EARS: Clear. No ulcers. NOSE: Intact. No lesions. MOUTH: Clear. No discharge. THROAT: Clear. No exudate. LUNGS: Clear. No crackles. CARDIAC: S1, S2. No rub. ABDOMEN: Benign. Bowel sounds positive. GENITALIA/RECTUM: Scott absent. BACK/EXTREMITIES: Edema 0+. NEUROLOGICAL: Alert and motor intact. SKIN: LYMPHATICS: LABORATORY DATA: Labs showed hemoglobin 14. Sodium 149. ASSESSMENT AND PLAN: 1. Hypernatremia, improved. 2. Acute kidney disease, stable. 3. Chronic kidney disease, stage 2, stable. Continue hydration. I will sign off on this patient. Please reconsult as needed. Job ID: [id number]
--- NOTE | 2019-02-25 15:53 | PQF ---
RICKY ANN VINAYA KUMAR MD [id number] [facility]-291 [phone] CLINICAL DOCUMENTATION IMPROVEMENT CLARIFICATION FORM: ICD-10 Updated PLEASE DO AN ADDENDUM TO THE PROGRESS NOTE WITH ANY DOCUMENTATION UPDATES OR ADDITIONS AND CARRY THROUGH TO DC SUMMARY. THANK YOU. DATE: 02/25/19 ATTN: DR. Susana VARGAS Please exercise your independent, professional judgment in responding to the clarification form. Clinical indicators are provided on the bottom of this form for your review. Please check appropriate box(es): Sepsis due to: UTI [ x ] Severe sepsis with acute organ dysfunction of: (Examples: respiratory failure, encephalopathy, acute kidney failure, other) [ ] Septic Shock [ ] Localized infection without sepsis [ ] Other diagnosis [ ] Unable to determine In addition, please specify: Present on Admission (POA): [ x ] Yes [ ] No [ ] Unable to determine For continuity of documentation, please document condition throughout progress notes and discharge summary. Thank You. CLINICAL INDICATORS - SIGNS / SYMPTOMS / LABS 02/23 WBC 13.5 02/23 LACTIC ACID 2.8 3.1 02/23 ED : SEPSIS ALERT ACTIVATED TO ED: UPON ARRIVAL PT WAS TACHYPNEA WITH RESPIRATIONS AT 19-38 02/23 ED PHYSICIAN DX: SEPSIS 2/2 UTI 02/23 ED REPORT: HPI MENTAL STATUS CHANGES: PT PRESENTS FOR EVAL OF AMS CHANGES. PT BECAME ESSENTIALLY UNRESPONSIVE AND NONVERBAL, AND UNABLE TO AMBULATE. APPARENTLY ANGELIQUE PUS WAS RETRIEVED ON CATH SPECIMEN AT [facility]ISON. NO FURTHER MENTION OF SEPSIS TO DATE RISK: AMS FROM BASELINE (ED REPORT) UTI/ METABOLIC ACIDOSIS ([facility]) RECENT HOSPITALIZATION ([facility]) ADVANCED AGE (88) TREATMENTS IV FLUIDS (/-PRESENT) ROCEPHIN IV (02/24-PRESENT) SERIAL LABS THANK YOU! SHAKIR (This form is maintained as a part of the permanent medical record) 2014 [employer]. All Rights Reserved YONATAN [email or web address] [phone] [facility]ITALTony
[2019-02-25] MEDS: Latanoprost 0.005% Ophth Soln 2.5 ml Bottle EA EYE SCH (19:54)
[2019-02-25] MEDS: Melatonin 3 MG TAB PO SCH (19:55)
[2019-02-25] MEDS ORDERED: Lorazepam 2 MG/ML VIAL SLOW IVP PRN (20:34)
[2019-02-26] MEDS: cefTRIAXone\\ROCEPHIN 1 GM in Sodium Chloride 0.9% 100 ML IVPB SCH (02:04)
[2019-02-26 05:48] LABS: Anion Gap 13 mmol/L (10-20); BUN (Urea Nitrogen) 17 mg/dL (9.8-20.1); Calc. Creatinine Clearance 52 mL/min (70-130); Calcium 8.6 mg/dL (7.8-10.44); Carbon Dioxide 24 mmol/L (23-31); Chloride 109 mmol/L (98-107); Estimated GFR-MDRD 81; Glucose 95 mg/dL (83-110); Potassium 3.3 mmol/L (3.5-5.1); Sodium 143 mmol/L (136-145)
[2019-02-26] MEDS: Albuterol Sulfate 1.25 MG/3 ML NEB NEB SCH ×3 (06:48→22:12)
--- NOTE | 2019-02-26 12:03 | PDOC.PN ---
- Subjective Encounter Start Date: 02/26/19 Encounter Start Time: 07:45 Subjective: is in deep sleep, not in distress - Objective Resuscitation Status - Order Detail: 02/23/19 03:19 Resuscitation Status Routine Resuscitation Status: DNAR: NO Resuscitation Discussed with: d/w son Mr.Johnson Santo and ANAHY MURPHY Reviewed: Yes Vital Signs & Weight: Vital Signs (12 hours) Temp Pulse Resp BP Pulse Ox 02/26/19 12:00 97.4 F L 45 L 20 126/70 95 Weight Admit Weight 142 lb 3.17 oz Weight 154 lb 3.2 oz I&O: 02/25/19 02/26/19 02/27/19 06:59 06:59 06:59 Intake Total 2050 1588 Output Total 450 Balance 1600 1588 Result Diagrams: 02/24/19 07:58 02/26/19 05:05 Phys Exam - Physical Examination HEENT: PERRLA, moist MMs Neck: no JVD, supple Respiratory: no wheezing, no rales Cardiovascular: RRR, no significant murmur Gastrointestinal: soft, non-tender, positive bowel sounds Musculoskeletal: no edema, pulses present Neurological: non-focal, moves all 4 limbs Dx/Plan (1) UTI (urinary tract infection) Status: Acute Qualifiers: Urinary tract infection type: acute cystitis Hematuria presence: without hematuria Qualified Code(s): N30.00 - Acute cystitis without hematuria (2) BETY (acute kidney injury) Code(s): N17.9 - ACUTE KIDNEY FAILURE, UNSPECIFIED Status: Resolved (3) Metabolic acidosis Code(s): E87.2 - ACIDOSIS Status: Resolved (4) Hyperkalemia Code(s): E87.5 - HYPERKALEMIA Status: Resolved (5) Elevated LFTs Code(s): R94.5 - ABNORMAL RESULTS OF LIVER FUNCTION STUDIES Status: Acute (6) Acute metabolic encephalopathy Code(s): G93.41 - METABOLIC ENCEPHALOPATHY Status: Acute (7) Protein-calorie malnutrition, moderate Code(s): E44.0 - MODERATE PROTEIN-CALORIE MALNUTRITION Status: Chronic (8) Dementia Code(s): F03.90 - UNSPECIFIED DEMENTIA WITHOUT BEHAVIORAL DISTURBANCE Status: Chronic Qualifiers: Dementia type: unspecified type Dementia behavioral disturbance: with behavioral disturbance Qualified Code(s): F03.91 - Unspecified dementia with behavioral disturbance (9) Hypernatremia Code(s): E87.0 - HYPEROSMOLALITY AND HYPERNATREMIA Status: Acute (10) Dehydration Code(s): E86.0 - DEHYDRATION Status: Acute Comment: resolving - Plan electrolytes are slowly returning to baseline -: dc plan in am to snf, encourage po intake -: renal function at baseline this am -: has adv dementia, PT to mobilize as tolerated when awake -: may dc ceftriaxone on discharge, continue norvasc and melatonin * . Review of Systems - Medications/Allergies Allergies/Adverse Reactions: Allergies Allergy/AdvReac Type Severity Reaction Status Date / Time sulfamethoxazole Allergy Verified 02/23/19 07:55 [From Bactrim] trimethoprim [From Bactrim] Allergy Verified 02/23/19 07:55 Medications: Current Medications Acetaminophen (Tylenol) 650 mg PO Q4H PRN PRN Reason: Headache/Fever/Mild Pain (1-3) Last Admin: 02/25/19 19:55 Dose: 650 mg Albuterol Sulfate (Albuterol Sulfate) 1.25 mg NEB [id number] ERIC Last Admin: 02/26/19 06:48 Dose: Not Given Amlodipine Besylate (Norvasc) 5 mg PO DAILY ERIC Heparin Sodium (Porcine) (Heparin) 5,000 units SC BID ERIC Last Admin: 02/25/19 19:54 Dose: 5,000 units Hydralazine HCl (Apresoline) 10 mg SLOW IVP Q4H PRN PRN Reason: SBP > 180 and HR < 70 Ceftriaxone Sodium 1 gm/ (Sodium Chloride) 100 mls @ 200 mls/hr IVPB Q24HR ERIC Last Admin: 02/26/19 02:04 Dose: 100 mls Dextrose/Water (D5w) 1,000 mls @ 30 mls/hr IV .Q24H ERIC Last Admin: 02/25/19 18:24 Dose: 1,000 mls Latanoprost (Xalatan 0.005% Ophth Soln) 1 drop EA EYE HS [facility] Last Admin: 02/25/19 19:54 Dose: 1 drop Lorazepam (Ativan) 1 mg SLOW IVP ONE PRN PRN Reason: Anxiety/Agitation Stop: 02/26/19 20:35 Last Admin: 02/26/19 06:02 Dose: 1 mg Melatonin (Melatonin) 6 mg PO HS [facility] Last Admin: 02/25/19 19:55 Dose: 6 mg Potassium Chloride (K-Dur) 40 meq PO BID-WM ERIC Sodium Chloride (Flush - Normal Saline) 10 ml IVF Q12HR ERIC Last Admin: 02/25/19 19:55 Dose: Not Given Sodium Chloride (Flush - Normal Saline) 10 ml IVF PRN PRN PRN Reason: Saline Flush
--- NOTE | 2019-02-26 12:54 | PRG ---
DATE OF SERVICE: 02/26/2019 SUBJECTIVE: An 88-year-old female, being seen for acute kidney injury and hypernatremia. The patient denies any nausea, vomiting, or chest pain. OBJECTIVE: GENERAL: The patient is awake and alert. VITAL SIGNS: Afebrile, pulse 70, breathing 16, blood pressure 130/62. GENERAL APPEARANCE AND MENTAL STATUS: Fair. HEAD/NECK: Normocephalic. Atraumatic. EYES: EOMI. No deformity. EARS: Clear. No ulcers. NOSE: Intact. No lesions. MOUTH: Clear. No discharge. THROAT: Clear. No exudate. LUNGS: Clear. No crackles. CARDIAC: S1, S2. No rub. ABDOMEN: Benign. Bowel sounds positive. GENITALIA/RECTUM: Scott absent. BACK/EXTREMITIES: Edema 0+. NEUROLOGICAL: Alert and motor intact. SKIN: LYMPHATICS: LABORATORY DATA: Reviewed. ASSESSMENT AND RECOMMENDATIONS: 1. Stage 3 chronic kidney disease, stable. 2. Hypertension, stable. 3. Anemia, stable. 4. Hypernatremia, resolved. I will sign off on this patient. Please reconsult as needed. Job ID: [id number]
[2019-02-26] MEDS: Potassium Chloride 20 MEQ TAB PO SCH ×2 (15:41→20:47)
[2019-02-26] MEDS: Heparin 5,000 UNITS/ML VIAL SC SCH ×2 (15:41→20:46)
[2019-02-26] MEDS: Amlodipine 5 MG TAB PO SCH (15:41)
[2019-02-26] MEDS: Dextrose 5% in Water 1,000 ML IV SCH (20:47)
[2019-02-26] MEDS: Latanoprost 0.005% Ophth Soln 2.5 ml Bottle EA EYE SCH (21:01)
[2019-02-26] MEDS: Melatonin 3 MG TAB PO SCH (21:03)
[2019-02-27] MEDS: cefTRIAXone\\ROCEPHIN 1 GM in Sodium Chloride 0.9% 100 ML IVPB SCH (02:32)
[2019-02-27] MEDS ORDERED: Potassium Chloride 20 MEQ TAB PO SCH (07:15)
[2019-02-27] MEDS: Albuterol Sulfate 1.25 MG/3 ML NEB NEB SCH (07:20)
[2019-02-27 07:29] VITALS: TEMP 98.3
[2019-02-27] MEDS: Potassium Chloride 20 MEQ TAB PO SCH (08:08)
[2019-02-27] MEDS: Amlodipine 5 MG TAB PO SCH (08:08)
[2019-02-27] MEDS: Heparin 5,000 UNITS/ML VIAL SC SCH (11:27)
[2019-02-27 12:59] VITALS: BMI 26.4
[2019-02-27 13:46] VITALS: BP 138/78
--- NOTE | 2019-02-28 04:31 | DIS ---
DATE OF ADMISSION: 02/23/2019 DATE OF DISCHARGE: 02/27/2019 PRIMARY CARE PROVIDER: Stone Duran MD DISCHARGE DIAGNOSES: 1. Severe sepsis. 2. Urinary tract infection. 3. Acute kidney injury. 4. Metabolic acidosis. 5. Hyperkalemia. 6. Acute metabolic encephalopathy. 7. Moderate protein-calorie malnutrition. 8. Hypernatremia. DISCHARGE MEDICATIONS: No change was made to her pre-admission home medications as dictated in Dr. Andrew's history and physical note dated February 23, 2019. HOSPITAL COURSE: Ms. Whitney is a pleasant 88-year-old lady, who was admitted to [facility] on February 23, 2019, for acute kidney injury and severe sepsis, most likely secondary to partially treated urinary tract infection. She was seen by Nephrology Service. Nephrotoxic medications were held. She received intravenous fluids with improvement in her dehydration and acute kidney injury. She was also seen by Palliative Care Service during this hospitalization. Her home medications are being resumed at the time of discharge back to [facility] facility. I am continuing her diuretics at this time to prevent her going into volume overload, although she is also encouraged to have good oral fluid intake. She will need her chem-7. On the day of discharge, she has sodium 143, potassium 3.3, which was replaced and creatinine 0.81. Many thanks for allowing me to participate in your patient's care. Please feel free to contact me with any questions or concerns. DISCHARGE DESTINATION: [facility], from where patient was admitted to the hospital. TIME SPENT: Total amount of time spent coordinating this discharge: 32 minutes. Job ID: [id number]
== END 2019-02-27 14:27 | DRG 871 ==
LOC: ERS 00:48 → 2NO 04:00 → T4-B 02-25 09:56
PROVIDERS: ADMIT Internal Medicine; ATTEND Internal Medicine
DX: A41.9 Sepsis, unspecified organism (principal); G93.41 Metabolic encephalopathy; N17.9 Acute kidney failure, unspecified; E87.2 Acidosis; E44.0 Moderate protein-calorie malnutrition; N30.00 Acute cystitis without hematuria; E87.0 Hyperosmolality and hypernatremia; R65.20 Severe sepsis without septic shock; Z66 Do not resuscitate; I12.9 Hypertensive chronic kidney disease with stage 1 through stage 4 chronic kidney disease, or unspecified chronic kidney disease; N18.3 Chronic kidney disease, stage 3 (moderate); D63.1 Anemia in chronic kidney disease; K21.9 Gastro-esophageal reflux disease without esophagitis; E78.5 Hyperlipidemia, unspecified; K59.00 Constipation, unspecified; G30.9 Alzheimer's disease, unspecified; E87.5 Hyperkalemia; E86.0 Dehydration; F02.80 Dementia in other diseases classified elsewhere, unspecified severity, without behavioral disturbance, psychotic disturbance, mood disturbance, and anxiety; Z79.899 Other long term (current) drug therapy; Z68.26 Body mass index [BMI] 26.0-26.9, adult
CPT/HCPCS: 36415; 71045; 80048; 80053; 81003; 81015; 83605; 85025; 87040; 87086; 94640; 94760; A4353; J0696; J1644; J2060; J3490